=== PATIENT | female | born 1945 | race Caucasian/White ===

== ENCOUNTER 2016-10-23 04:14 | Inpatient (IN) | payer BC ==
[2016-10-10 20:27] LABS: BASOPHILS 0.5 %; BASOPHILS ABSOLUTE 0.04 10/3/uL (0.0-0.16); EOSINOPHILS 2.7 %; HEMATOCRIT 39.5 % (36.0-48.0); HEMOGLOBIN 13.8 g/dL (12.0-16.0); IMMATURE GRANULOCYTES 0.3 %; IMMATURE GRANULOCYTES ABSOLUTE 0.02 10/3/uL (0.0-0.11); LYMPHOCYTES 27.5 %; LYMPHOCYTES ABSOLUTE 2.03 10/3/uL (0.67-4.30); MEAN CORPUS HGB CONC 34.9 g/dL (32.0-36.0); MEAN CORPUSCULAR HEMOGLOB 30.6 pg (26.0-34.0); MEAN CORPUSCULAR VOLUME 87.6 fL (80-100); MEAN PLATELET VOLUME 10.5 fL (9.2-13.0); MONOCYTES 8.3 %; MONOCYTES ABSOLUTE 0.61 10/3/uL (0.21-1.20); NEUTROPHILS 60.7 %; NEUTROPHILS ABSOLUTE 4.47 10/3/uL (2.02-8.40); PLATELET COUNT 228 10/3/uL (150-400); RBC DISTRIBUTION WIDTH 13.4 % (12.0-16.0); RED CELL COUNT 4.51 10/6/uL (4.0-5.6); WHITE BLOOD CELLS 7.4 10/3/uL (4.5-10.5)
[2016-10-10 20:29] LABS: MANUAL DIFF NO %
[2016-10-10 20:37] LABS: A/G RATIO 1.6 (0.7-1.9); ALBUMIN 4.2 G/DL (3.5-5.0); ALKALINE PHOSPHATASE 83 U/L (45-117); BUN (BLOOD UREA NITROGEN) 25 MG/DL (6-23); CALCIUM, SERUM 9.2 MG/DL (8.5-10.4); CHLORIDE, SERUM 103 MMOL/L (96-112); CO2 (CARBON DIOXIDE) 28 MMOL/L (24-34); GFR AFRICAN AMERICAN 74 ML/MIN (>=60); GFR NON AFRICAN AMERICAN 63 ML/MIN (>=60); GLOBULIN 2.6 G/DL (2.5-4.1); POTASSIUM, SERUM 4.2 MMOL/L (3.5-5.3); SGOT(AST) 18 U/L (5-40); SGPT(ALT) 15 U/L (5-65); SODIUM, SERUM 140 MMOL/L (135-148); TOTAL BILIRUBIN 0.4 MG/DL (0-1.2); TOTAL PROTEIN 6.8 G/DL (6.0-8.5)
[2016-10-10 20:41] LABS: GLUCOSE, SERUM 111 MG/DL (60-99)
[2016-10-10 22:03] LABS: INTERNATIONAL NORMAL RATI 1.1 UNITS (-); PROTIME (NOT ORD) 14.2 SEC (12.0-14.5)
[2016-10-10 22:15] LABS: ASCORBIC ACID (UR NOT ORDER) NEG (NEG); BILIRUBIN, URINE NEGATIVE (NEG); KETONE, URINE NEGATIVE (NEG); LEUKOCYTE ESTERASE(NOT OR NEG (NEG); WBC (NOT ORDERED) (RFLEX) < 1 (0-5)
--- NOTE | ~2016-10-23 | CN ---
Consultation Report [address] [place]. [address] NAME: MARY JO DAVIS : 41 STATUS : ADM IN PAT#: [id number] AGE: 71 ADM/REG DATE : 10/23/16 MR#: [id number] REPORT SERV DATE: 10/24/16 DICTATED BY: SELINNEMOSELENETONY PATRICK DATE: 10/24/16 REPORT STATUS : Draft TRANSCRIBED BY: MODL DATE: 10/24/16 CONSULTATION DATE OF CONSULTATION: 10/24/2016 REASON FOR CONSULTATION: Consulted for elevated heart rate and questionable EKG changes. IDENTIFYING DATA: 1. PCP Ida Lin. 2. Art Framing Manager Davide Siddiqui MD. 3. Orthopedist Riley Shore M.D. HISTORY OF PRESENT ILLNESS: This is a pleasant 71-year-old female with a history of coronary artery disease, hypertension, dysrhythmias, paroxysmal atrial fibrillation, hypothyroidism, diabetes type 2, as well as history of a DVT and PE with pneumonia in 2011. The hospitalist group has been consulted for an irregular heart rhythm noted while she was on defensive telemetry. She is presently on cardiac telemetry for which she was transferred which notes a heart rate at 140s. The patient states she is asymptomatic of her elevated heart rate. The patient's history was obtained through careful interview with the patient coupled with review of the business information consultant's notes and old medical [facility] and [facility]. PAST MEDICAL HISTORY: 1. The patient wears reading glasses. 2. Hypertension. 3. Coronary artery disease. 4. Dysrhythmias. 5. Paroxysmal atrial fibrillation in 2011. 6. Asthma. 7. Pneumonia. 8. Left hip pain. 9. Arthritis in her hand. 10.Renal calculi. 11.Hypothyroidism. 12.Anemia. 13.Diabetes type 2 with average blood sugars 95 to 120. 14.Anxiety. 15.Depression. 16.DVT and PE with pneumonia for which she was intubated on a ventilator at [facility] in 2011. HOME MEDICATION: 1. Tylenol 500 mg p.o. every 6 hours p.r.n. Consultation Report [address] [place]. [address] NAME: MARY JO DAVIS : 43 STATUS : ADM IN PAT#: [id number] AGE: 71 ADM/REG DATE : 10/23/16 MR#: [id number] REPORT SERV DATE: 10/24/16 DICTATED BY: SELENE SMALLWOOD DATE: 10/24/16 REPORT STATUS : Draft TRANSCRIBED BY: DORY DATE: 10/24/16 2. Cardizem CD 240 mg p.o. daily. 3. Levemir 10 units subcutaneous twice a day. 4. Synthroid 25 mcg p.o. daily. 5. Lisinopril 2.5 mg p.o. daily. 6. Metformin 500 mg p.o. with breakfast and supper. 7. Toprol-XL 200 mg p.o. daily. ALLERGIES: NO KNOWN ALLERGIES. SOCIAL HISTORY: The patient is a . She lives with her daughter in her own apartment. She has no use of tobacco, no alcohol. No illicit drug use. She has three grown children, one of which is which is a son. SURGICAL HISTORY: 1. Bilateral IOLI. 2. Placement of IVC filter. 3. Previous intubation and on a ventilator at [facility] in 2011 for DVT, PE, and pneumonia. REVIEW OF SYSTEMS: Review of systems are negative other than what is in HPI. The patient is alert and oriented x3. She is asymptomatic of her heart rate elevated to a high 140s. She has no abdominal pain. No chest pain. No palpitations. No fever. No shortness of breath. Displays no confusion or agitation. No nausea and vomiting presently. PHYSICAL EXAMINATION: VITAL SIGNS: From today blood pressure 142/64, respiratory rate 18, heart rate variable from low 100 to 140 presently on cardiac telemetry, temperature 98.1, and O2 saturation 97%. GENERAL: This is a very pleasant 71-year-old female, resting in bed. No acute distress. NEURO: Her head is atraumatic, normocephalic. She is alert and oriented x3. Her cranial nerves are intact. Her mood is pleasant and appropriate. NECK: Supple. Trachea is midline. No JVD noted. No obvious thyromegaly or lymphadenopathy. EENT: Her sclerae are nonicteric. Her pupils are equal and reactive to light. Nares are patent. Mucous membranes moist. Tongue is midline. Soft palate rises equally on phonation. CHEST: No pain with palpation. LUNGS: Clear to auscultation bilaterally with normal respiratory effort. She has no increased work of breathing with conversation. She is encouraged to use her incentive spirometer, and she is presently demonstrating the use of the incentive spirometer. CARDIOVASCULAR: S1, S2. The patient was placed on cardiac telemetry after transfer which shows a heart rate in the 140s. ABDOMEN: Abdomen is obese, soft, nontender. She has active bowel sounds. No palpable organomegaly. Consultation Report [address] [place]. [address] NAME: MARY JO DAVIS : 43 STATUS : ADM IN PAT#: [id number] AGE: 71 ADM/REG DATE : 10/23/16 MR#: [id number] REPORT SERV DATE: 10/24/16 DICTATED BY: SELENE SMALLWOOD DATE: 10/24/16 REPORT STATUS : Draft TRANSCRIBED BY: DORY DATE: 10/24/16 EXTREMITIES: She has a slight pedal edema. Normal distal pulses. No calf tenderness. She has bilateral TEDs in place. SKIN: Warm and dry. No unusual rashes or lesions. Normal color and turgor. PSYCH: The patient is pleasant, cooperative, appropriate mood and affect. SURGICAL WOUND SITE: She has a dressing clean, dry and intact. She has a [place] drain in place with sanguinous drainage noted. LABORATORY DATA: Lab is from 10/10/2016 which showed a sodium of 140, potassium of 4.2, chloride 103, BUN 25, creatinine 0.90, GFR 74. Glucose 111, calcium 9.2, white blood cells 7.4, hemoglobin 13.8, hematocrit 39.5, platelets 228. INR 1.1. On 10/24/2016, her EKG showed a heart rate in the low 100s with a wide QRS complex, nonspecific intraventricular block and an old anterior septal infarct that is actually noted on her previous EKG from 10/10/2016. On 10/10/2016, her EKG showed sinus bradycardia with a first degree AV block, and an anterior septal infarct that was previously noted on or before 09/17/2016. The patient previously had a Lexiscan on 06/29/2012 that showed nonischemic EKG changes, mild baseline abnormalities. On 04/05/2012, she had an echo that showed a preserved EF and mild mitral regurgitation. She had placement of a Holter monitor on 04/01/2013 that showed basic rhythm is sinus, rare ventricular beats, supraventricular beats in singles, pairs and runs and no pauses noted. ASSESSMENT AND PLAN: 1. The patient has a tachycardic rhythm. Her heart rate is up to the 140s and it has been irregular at times. She does have a history of atrial fibrillation paroxysmally. She has a history of abnormal EKG as well as hypertension. She is on Cardizem and Toprol- XL daily. She will be placed on a Cardizem drip protocol here to manage her rate, and after her rate is controlled, she will continue her Cardizem p.o. She is continuing Toprol and lisinopril as ordered. She is placed on cardiac telemetry. She has a cardiac ADA diet. We will check labs of a troponin as well as a TSH and a free T4 since she has become tachycardic within this shift. 2. Diabetes type 2. The patient states that she is on metformin at home as well as Levemir. She checks her blood sugars at least 3 times a day. She says she averages 117 in the morning and sometimes in the 120s in the afternoon. She presently will hold her metformin. She will have fingerstick blood sugars a.c. and h.s. with a sliding scale level 1 with a hypoglycemic protocol. We will continue her Levemir. She does have a motion study technician consult for this morning regarding diet and monitoring. We will check a hemoglobin A1c this morning. 3. Hypothyroidism. Aware. The patient is on Synthroid at home. We will continue her dose of Synthroid but check a TSH and a free T4 this a.m. due to the patient becoming tachycardic. 4. Past history of deep vein thrombosis and pulmonary embolism. She is status post left Consultation Report [place] [id number] [facility] [place]. [address] NAME: MARY JO DAVIS : 41 STATUS : ADM IN PAT#: [id number] AGE: 71 ADM/REG DATE : 10/23/16 MR#: [id number] REPORT SERV DATE: 10/24/16 DICTATED BY: SELENE SMALLWOOD DATE: 10/24/16 REPORT STATUS : Draft TRANSCRIBED BY: DORY DATE: 10/24/16 hip on 10/23/2016. She is started on Coumadin per Orthopedic physician postoperatively. The patient did present to Dr. Ilia Shore with osteoarthritis of her left hip, and she is status post left total hip arthroplasty of the left hip on 10/23/2016. 5. Labs; BMP, magnesium, phosphorus, CBC, PT with INR, TSH, free T4, troponin and hemoglobin A1c this a.m. The hospitalist group would like to thank you for this consultation. Please let us know if we could be of further assistance. HERNESTO Selene Smallwood NP / [id number] CC: Jen Echeverria M.D.
--- NOTE | ~2016-10-23 | CN ---
Consultation Report [facility] [address] [place]. [address] NAME: MARY JO ROSALES : 41 STATUS : ADM IN PAT#: [id number] AGE: 71 ADM/REG DATE : 10/23/16 MR#: [id number] REPORT SERV DATE: 10/24/16 DICTATED BY: ROGER COFFEY DATE: 10/24/16 REPORT STATUS : Draft TRANSCRIBED BY: MODJose DATE: 10/24/16 CARDIOLOGY CONSULTATION DATE OF CONSULTATION: 10/24/2016 REASON FOR CONSULTATION: Wide-complex rhythm. HISTORY OF PRESENT ILLNESS: Ms. Rosales is a pleasant 71-year-old woman. She recently began seeing Dr. Cornelius Siddiqui from Cardiology for preoperative assessment prior to undergoing hip replacement. A stress MPI was performed, which showed normal cardiac structure and function and no evidence of ischemia. The patient has a previous history of a pulmonary embolus and during that time, she had an episode of atrial fibrillation. The patient took anticoagulation for six months for the pulmonary embolus, but it was not continued beyond that time as she had no further episodes of atrial fibrillation. Yesterday, she underwent her hip replacement and last night, she had some discomfort. Apparently, she had a stressful event, in which she had some nighttime urination and was trying to get the nurse's attention. She was quite angry and during that time, she had a wide-complex tachycardia. The rate was about 110 beats per minute. It did not have a classic left bundle-branch block pattern, but more of an IVCD of a left bundle-branch block type. I could not discern any P waves. The patient has had no recurrence of any arrhythmias. She had workup by Dr. Cornelius Siddiqui, showing normal cardiac structure and function by stress MPI. She did not have an echocardiogram. She has risk factors that include hypertension and diabetes. PAST MEDICAL HISTORY: 1. Diabetes. 2. Hypertension. 3. History of pulmonary embolus x1. 4. History of atrial fibrillation in the setting of pulmonary embolus, no recurrence. CURRENT MEDICATIONS: Diltiazem, insulin, levothyroxine, lisinopril, metformin, metoprolol. FAMILY HISTORY: Negative for premature coronary disease or sudden cardiac . SOCIAL HISTORY: Negative for tobacco or alcohol. REVIEW OF SYSTEMS: As noted above. All other systems reviewed and negative. PHYSICAL EXAMINATION: VITAL SIGNS: Blood pressure of 100/50, pulse 84, respirations 16. GENERAL: Well developed, well nourished. HEENT: No icterus. Good dentition. Consultation Report [facility] [address] [place]. [address] NAME: MARY JO ROSALES : 43 STATUS : ADM IN PAT#: [id number] AGE: 71 ADM/REG DATE : 10/23/16 MR#: [id number] REPORT SERV DATE: 10/24/16 DICTATED BY: ROGER COFFEY DATE: 10/24/16 REPORT STATUS : Draft TRANSCRIBED BY: MODL DATE: 10/24/16 NECK: Supple. No masses or thyromegaly. LUNGS: Breathing comfortably. No rales or wheezes. COR: Normal S1, S2. No S3 or S4. No murmurs, clicks, rubs. No JVD. ABD: Soft, nondistended, nontender. No hepatosplenomegaly. EXT: No clubbing, cyanosis, or edema. Peripheral pulses 2+/= bilaterally. SKIN: Warm and dry. No visible lesions. MS: Chest wall without deformity. No obvious clavicular fractures. NEURO/PSYCH: Oriented x3. No anxiety or depression. DIAGNOSTIC STUDIES: EKG shows sinus rhythm. The patient has first-degree AV block. QRS and QT intervals within normal limits. No evidence for ischemia, infarction, or chamber hypertrophy. There is an EKG that shows a wide-complex rhythm, left bundle-branch block type IVCD, but not a classic left bundle-branch block. I could not discern any P waves. No AV dissociation was appreciated. LABORATORY VALUES: Essentially all within normal limits. IMPRESSION: The patient is found to have a wide-complex tachycardia, rate of about 110 beats per minute, asymptomatic. Stress MPI was recently performed and was unremarkable, showing no ischemia, no infarct, and normal LV systolic function. I would not recommend any further workup or treatment, apart from having her undergo an echocardiogram to make certain that cardiac structure and function are completely normal. She takes beta-chong in the form of Lopressor, I would continue this medication. Partners will check over weekend. JOSE/MODL Roger Coffey M.D. / [id number] CC: Jen Echeverria Susan Gaile
--- NOTE | ~2016-10-23 | OP ---
Record Of Operation [facility] [address] [place]. [address] NAME: MARY JO DAVIS : 41 STATUS : ADM IN PAT#: [id number] AGE: 71 ADM/REG DATE : 10/23/16 MR#: [id number] REPORT SERV DATE: 10/23/16 DICTATED BY: FILI LAWSON DATE: 10/23/16 REPORT STATUS : Draft TRANSCRIBED BY: DORY DATE: 10/23/16 DATE OF PROCEDURE: 10/23/2016 PREOPERATIVE DIAGNOSIS: Severe left hip degenerative joint disease. POSTOPERATIVE DIAGNOSIS: Severe left hip degenerative joint disease. PROCEDURE: Uncemented total hip arthroplasty, Tri-Lock. SIDE: Left. FARM BUTCHER: ANESTHESIA: See chart. SIZE: See chart. ESTIMATED BLOOD LOSS: About 100 mL. INDICATIONS FOR SURGERY: PROCEDURE: The patient was taken to the operating room and placed supine on the table without incident. Anesthetic was induced per the anesthesiologist. A Pantoja catheter was placed by the nurse in the standard sterile technique. The correct side for the procedure was identified by preoperative markings and matched with the consent form. All personnel in the room were in agreement regarding the procedure, patient, and side. The patient was then carefully positioned and carefully padded and prepped and draped in the normal sterile fashion. The patient received prophylactic preoperative antibiotics at the appropriate time. The preoperative x-ray was brought up on the monitor. Again, this was reviewed with the staff in the room. According with the preoperative plan, and angled, an anterolateral incision was made centered over the trochanter extending from proximal posterior to distal anterior. Electrocautery was used to maintain meticulous hemostasis. The IT band was split in line with its fibers. A Charnley retractor was placed over saline moistened laps. A standard anterolateral approach to the hip was carried out dissecting in line with the vastus medialis fibers lifting the inferior 20% of the vastus medialis, proximally the interior 20% of the gluteus medius and gluteus minimus tendons off the anterior capsule. Periosteal elevator was used to elevate soft tissue gently directly off the proximal anterior femoral bone. Appropriate retractors were carefully placed. Complete anterior capsulectomy was performed. The hip was then carefully dislocated with a combination of traction maneuver by the bookkeeping assistant and scooping the ball out of the socket with a Hohmann. A femoral neck osteotomy was marked according to what had been preoperatively planned with a broach as a template. The distance for the femoral neck osteotomy was measured with a ruler. A femoral neck osteotomy was made with an oscillating saw under appropriate retraction. Meticulous hemostasis was again obtained. The leg was then brought up out of the anterior bag and Record Of Operation [place] [id number] [place]. [address] NAME: MARY JO DAVIS : 43 STATUS : ADM IN PAT#: [id number] AGE: 71 ADM/REG DATE : 10/23/16 MR#: [id number] REPORT SERV DATE: 10/23/16 DICTATED BY: FILI LAWSON DATE: 10/23/16 REPORT STATUS : Draft TRANSCRIBED BY: DORY DATE: 10/23/16 positioned with the lower extremity in external rotation and slight flexion. Acetabular retractors were placed carefully palpating to be sure that they were directly on the bone. The acetabular labrum was excised with electrocautery and rongeur. Pulvinar fat was removed with a large curette and rongeur and again meticulous hemostasis was obtained. Sequential reamers were used in the acetabulum to 1 mm. less than the final size which was chosen. This was felt to give excellent interference fit. The acetabular fossa was then copiously irrigated with pulsatile lavage and actual acetabular component was placed and impacted and checked to make sure it was down snug. The overall alignment was checked. The acetabular buckle wire inserter was then removed. Screws were placed in the standard fashion. A drill, depth gauge and self tapping screw placement taking care not to plunge as the drill holes were carefully placed. A trial liner was then placed and attention directed back to the proximal femur. The leg was placed back into the anterior bag. The proximal femur was prepared using a box chisel following by a T-handled reamer to determine the intramedullary alignment. This was followed by sequential broaches up to the final broach. Once it was seated in the appropriate position, a Calcar reamer was used to plane the proximal femur. Trial reduction was then done with a trial prosthetic ball and neck. A straight edge was used to compare the tip of the trochanter to center of the ball relationship to what had been noted on the preoperative x-ray. Careful reduction was then done of the total hip. Palpation was done to ascertain and compare leg lengths by palpating the nonoperative leg and also by checking soft tissue tension. The stability of the hip was checked in full extension with full external rotation and in full flexion with adduction, flexion and internal rotation. The hip was then re-dislocated with a bone hook. The femoral trial and femoral broach were removed. The acetabulum was then prepared under appropriate retraction by removing the trial liner. A central hole eliminator was placed and tightened. The shell was irrigated out. The actual insert was placed and impacted and then checked to be sure it was down snug with a joker. The leg was again positioned in the bag. The proximal femur exposed, irrigated and the actual thermal prosthesis was taken from the brand representative and impacted. Once it was down, the trunnion was cleansed with a wet and dry lap and the prosthetic thermal head was placed and impacted and checked to be sure it was down snug. The acetabulum was irrigated and reduction was obtained. Again, we checked soft tissue tension, leg length and stability as described above. The hip was closed in a layered fashion with a 5 mm. Mersilene tape placed through a single drill hole in the proximal anterior/superior trochanter reattaching the gluteus medius and minimus fibers. The vastus lateralis, gluteus medius, and gluteus minimus were then closed in a sleeve. Drain was placed between the vastus and the IT band exiting distally anteriorly. The IT band was closed. Subcutaneous closure and skin closure were then obtained. A sterile dressing was applied. The patient was carefully positioned into a supine position and then awakened. The patient was then carefully transferred to the stretcher to be returned to the postoperative care unit without incident. COMPLICATIONS: None. SPECIMENS: Left femoral head. Record Of Operation [address] [place]. [address] NAME: MARY JO DAVIS : 41 STATUS : ADM IN [facility]#: [id number] AGE: 71 ADM/REG DATE : 10/23/16 MR#: [id number] REPORT SERV DATE: 10/23/16 DICTATED BY: FILI LAWSON DATE: 10/23/16 REPORT STATUS : Draft TRANSCRIBED BY: MODJose DATE: 10/23/16 WTB/MODL Riley Lawson M.D. / [id number] CC: Riley Lawson M.D.
[~2016-10-23 04:14] MED LIST: ACET500CAP PO; CARDCD240 PO; GLUCPH PO; LEVEMIR SC; PRIN2.5 PO; SYN.025B PO; TOPROL XL200 MG PO
[2016-10-24 07:24] LABS: BASOPHILS 0.1 %; BASOPHILS ABSOLUTE 0.01 10/3/uL (0.0-0.16); EOSINOPHILS 0.2 %; EOSINOPHILS ABSOLUTE 0.02 10/3/uL (0.0-0.53); HEMOGLOBIN 11.2 g/dL (12.0-16.0); IMMATURE GRANULOCYTES 0.2 %; IMMATURE GRANULOCYTES ABSOLUTE 0.02 10/3/uL (0.0-0.11); LYMPHOCYTES 9.6 %; LYMPHOCYTES ABSOLUTE 1.13 10/3/uL (0.67-4.30); MEAN CORPUSCULAR HEMOGLOB 30.8 pg (26.0-34.0); MEAN CORPUSCULAR VOLUME 87.9 fL (80-100); MEAN PLATELET VOLUME 9.7 fL (9.2-13.0); MONOCYTES 9.5 %; MONOCYTES ABSOLUTE 1.11 10/3/uL (0.21-1.20); NEUTROPHILS 80.4 %; NEUTROPHILS ABSOLUTE 9.44 10/3/uL (2.02-8.40); PLATELET COUNT 181 10/3/uL (150-400); RBC DISTRIBUTION WIDTH 13.4 % (12.0-16.0); RED CELL COUNT 3.64 10/6/uL (4.0-5.6)
[2016-10-24 07:26] LABS: MANUAL DIFF NO %; WHITE BLOOD CELLS 11.7 10/3/uL (4.5-10.5)
[2016-10-24 07:29] LABS: INTERNATIONAL NORMAL RATI 1.4 UNITS (-)
[2016-10-24 07:31] LABS: PROTIME (NOT ORD) 16.6 SEC (12.0-14.5)
[2016-10-24 07:51] LABS: CHLORIDE, SERUM 101 MMOL/L (96-112); CO2 (CARBON DIOXIDE) 28 MMOL/L (24-34); CREATININE 0.94 MG/DL (0.55-1.02); FREE T4 1.47 NG/DL (0.76-1.46); GFR AFRICAN AMERICAN 70 ML/MIN (>=60); GFR NON AFRICAN AMERICAN 60 ML/MIN (>=60); PHOSPHORUS, SERUM 3.1 MG/DL (2.5-4.5); POTASSIUM, SERUM 4.7 MMOL/L (3.5-5.3)
[2016-10-24 07:53] LABS: BUN (BLOOD UREA NITROGEN) 20 MG/DL (6-23); CALCIUM, SERUM 8.2 MG/DL (8.5-10.4); GLUCOSE, SERUM 149 MG/DL (60-99); SODIUM, SERUM 133 MMOL/L (135-148)
[2016-10-24 07:55] LABS: TROPONIN I 0.05 NG/ML (<0.05)
[2016-10-25 05:29] LABS: HEMATOCRIT 29.3 % (36.0-48.0); HEMOGLOBIN 10.4 g/dL (12.0-16.0)
[2016-10-25 05:43] LABS: INTERNATIONAL NORMAL RATI 2.2 UNITS (-)
[2016-10-25 05:46] LABS: BUN (BLOOD UREA NITROGEN) 23 MG/DL (6-23); CALCIUM, SERUM 8.7 MG/DL (8.5-10.4); CHLORIDE, SERUM 103 MMOL/L (96-112); CO2 (CARBON DIOXIDE) 26 MMOL/L (24-34); CREATININE 0.94 MG/DL (0.55-1.02); GFR AFRICAN AMERICAN 70 ML/MIN (>=60); GFR NON AFRICAN AMERICAN 60 ML/MIN (>=60); GLUCOSE, SERUM 144 MG/DL (60-99); POTASSIUM, SERUM 4.2 MMOL/L (3.5-5.3); SODIUM, SERUM 135 MMOL/L (135-148); TROPONIN I 0.03 NG/ML (<0.05)
[2016-10-25 05:47] LABS: PROTIME (NOT ORD) 23.8 SEC (12.0-14.5)
== END 2016-10-25 17:54 | DRG 470 ==
LOC: SDC/OF 04:14 → PACU 08:09 → 3SO 09:06 → 1SO 10-24 01:46
PROVIDERS: Hospitalist; Nurse Practitioner Family; Specialist
PROC: 0SRB02A Replacement of Left Hip Joint with Metal on Polyethylene Synthetic Substitute, Uncemented, Open Approach (ICD-10-PCS; principal; 2016-10-23 05:30)
DX: M16.12 Unilateral primary osteoarthritis, left hip (principal); I48.0 Paroxysmal atrial fibrillation; E11.9 Type 2 diabetes mellitus without complications; I10 Essential (primary) hypertension; I25.10 Atherosclerotic heart disease of native coronary artery without angina pectoris; E03.9 Hypothyroidism, unspecified; Z86.711 Personal history of pulmonary embolism; Z86.718 Personal history of other venous thrombosis and embolism; Z79.899 Other long term (current) drug therapy; Z79.84 Long term (current) use of oral hypoglycemic drugs; R00.0 Tachycardia, unspecified; Z87.01 Personal history of pneumonia (recurrent); Z87.442 Personal history of urinary calculi; F32.9 Major depressive disorder, single episode, unspecified; F41.9 Anxiety disorder, unspecified
CPT/HCPCS: 36415; 72170; 80048; 80053; 81001; 82962; 83036; 83735; 84100; 84439; 84443; 84484; 85014; 85018; 85025; 85610; 86850; 86900; 86901; 87641; 88304; 88311; 93005; 93306; 97110-GP; 97161-GP; 97165-GO; 97530-GP; A9270-GY; C1713; C1776; J0690; J1885; J2250; J2270; J2405; J2710; J2795; J3010